=== PATIENT | male | born 1970 | race African-American/Black ===

== ENCOUNTER 2016-10-28 12:01 | Emergency (ER) | payer OTHER ==
--- NOTE | ~2016-10-28 | EKG ---
PATIENT: BURT MAGALLON UNIT #: [id number] Ventricular Rate: 75 BPM Atrial Rate: 75 BPM P-R Interval: 184 ms QRS Duration: 98 ms Q-T Interval: 404 ms QTC Calculation(Bezet): 451 ms P [place]: 33 degrees Calculated R [place]: -17 degrees Calculated T [place]: -8 degrees Diagnosis Line: Sinus rhythm with frequent Premature ventricular Diagnosis Line: complexes Diagnosis Line: Minimal voltage criteria for LVH, may be normal Diagnosis Line: variant Diagnosis Line: Borderline ECG Diagnosis Line: No previous ECGs available Diagnosis Line: Confirmed by JOSI JONES MD ([id number]) on Diagnosis Line: 10/28/2016 10:20:49 PM INTERPRETING MD: JOSÉ
[2016-10-28 13:10] LABS: BASOPHIL% 1.1 % (0-2.5); DIFF IND YES; EOSINOPHIL% 0.9 % (0.0-7.0); HEMATOCRIT 49.1 % (38.0-50.0); HEMOGLOBIN 16.1 gm/dL (13.0-16.0); LYMPHOCYTE# 1.1 X10e3 (1.0-3.5); LYMPHOCYTE% 29.9 % (17.0-45.0); MEAN CELL VOLUME 91.5 FL (83-96); MEAN CORPUSCULAR HEMOGLOBIN 29.9 PG (28-34); MEAN CORPUSCULAR HGB CONC 32.7 g/dL (30-36); MEAN PLATELET VOLUME 8.6 FL (6.5-11.5); MONOCYTE# 1.1 X10e3 (0-1.0); MONOCYTE% 29.2 % (3.0-12.0); NEUTROPHIL# 1.5 X10e3 (1.5-7.1); NEUTROPHIL% 38.9 % (40-75); PLATELET COUNT 213 X10e3 (140-420); RED BLOOD COUNT 5.37 X10e (3.90-5.60); RED CELL DISTRIBUTION WIDTH 14.7 % (11.0-15.5); WHITE BLOOD COUNT 3.8 X10e3 (4.0-10.5)
[2016-10-28 13:37] LABS: ALBUMIN SERUM 3.9 g/dL (3.5-5.0); ALKALINE PHOSPHATASE 37 U/L (32-92); ALT (SGPT) 18 U/L (10-40); AST (SGOT) 20 U/L (10-42); BILIRUBIN,TOTAL 0.7 mg/dL (0.2-2.0); BLOOD UREA NITROGEN 16 mg/dL (9-23); BUN/CREATININE RATIO 14.54; CALCIUM SERUM 8.7 mg/dL (8.4-10.2); CARBON DIOXIDE 28 mmol/L (22-31); CHLORIDE 100 mmol/L (100-111); CREATININE SERUM 1.1 mg/dL (0.6-1.4); GLOM FILT RATE Estimated 80.7 mL/min (>60); GLUCOSE FASTING 96 mg/dL (70-110); LIPASE 66 U/L (22-51); POTASSIUM 3.4 mmol/L (3.5-5.1); SODIUM 135 mmol/L (135-145)
[2016-10-28 13:40] LABS: BILIRUBIN, DIRECT <0.1 mg/dL (0.0-0.2); BILIRUBIN,INDIRECT 0.6 mg/dL (0.0-0.9)
[2016-10-28 13:45] LABS: PLATELET ESTIMATE NORMAL (NORMAL)
== END 2016-10-28 15:35 | disposition home or self-care (01) ==
LOC: CED 12:01
PROVIDERS: Emergency Medicine
DX: R19.7 Diarrhea, unspecified (principal); R11.2 Nausea with vomiting, unspecified; R10.12 Left upper quadrant pain; Z90.49 Acquired absence of other specified parts of digestive tract; Z98.890 Other specified postprocedural states
CPT/HCPCS: 36415; 80048; 80076; 83690; 85025; 93005; 96361; 96374; 99284; J2405